=== PATIENT | male | born 1990 | race Caucasian/White ===

== ENCOUNTER 2019-09-11 16:16 | Inpatient (IN) | payer OTHER ==
[~2019-09-11] VITALS: Ht 188 cm; Wt 92.0 kg
[2019-09-11] MEDS ORDERED: FLUO-191 PO (16:45)
[2019-09-11] MEDS ORDERED: CLON2 PO (16:45)
[2019-09-11] MEDS ORDERED: MIRT30 PO (16:45)
[2019-09-11 16:56] LABS: BASOPHILS % (AUTO) 0.2 % (0.0-2.0); EOSINOPHILS % (AUTO) 0.7 % (1.0-6.0); HEMATOCRIT 40.6 % (41-53); LYMPHOCYTES # (AUTO) 1.8 K/uL (1.0-4.8); LYMPHOCYTES % (AUTO) 38.3 % (22.0-44.0); MEAN CORPUSCULAR HEMOGLOBIN 32.4 pg (26.0-34.0); MEAN CORPUSCULAR HGB CONC 34.4 G/dL (31.0-37.0); MEAN CORPUSCULAR VOLUME 94 fL (80-100); MONOCYTES # (AUTO) 0.3 K/uL (0.1-1.0); MONOCYTES % (AUTO) 7.2 % (2.0-9.0); NEUTROPHILS # (AUTO) 2.5 K/uL (1.8-7.7); NEUTROPHILS % (AUTO) 53.6 % (40.0-70.0); PLATELET COUNT (AUTO) 164 K/uL (150-450); RED BLOOD CELL COUNT(AUTO) 4.31 MIL/uL (4.50-5.90); RED CELL DISTRIBUTION WIDTH 13.1 % (11.5-14.5)
[2019-09-11 17:03] LABS: ANION GAP 5 mmol/L (8-16); CALCIUM, TOTAL 8.7 mg/dL (8.8-10.5); CARBON DIOXIDE 32 mmol/L (22-29); CHLORIDE 104 mmol/L (98-107); CREATININE 0.99 mg/dL (0.60-1.30); GLOMERULAR FILTR. RATE CALC > 60 mL/min (>60); GLUCOSE,RANDOM 103 mg/dL (70-110); POTASSIUM 4.6 mmol/L (3.5-5.1); SODIUM SERUM 141 mmol/L (136-145); UREA NITROGEN, BLOOD 18 mg/dL (7-18)
[2019-09-11 17:09] LABS: ALANINE AMINOTRANSFERASE 27 U/L (12-78); ALBUMIN 4.3 g/dL (3.4-5.0); ALKALINE PHOSPHATASE 63 U/L (46-116); ASPARTATE AMINOTRANSFERASE 12 U/L (15-37); BILIRUBIN,TOTAL 0.9 mg/dL (0.1-1.0); TOTAL PROTEIN, SERUM 7.8 g/dL (6.4-8.2)
[2019-09-11] MEDS ORDERED: ACETAMINOPHEN 325 MG TABLET PO PRN (18:45)
[2019-09-11] MEDS ORDERED: ONDANSETRON HCL 4 MG/2 ML VIAL IVP PRN (18:45)
[2019-09-11] MEDS ORDERED: 0.9% SODIUM CHLORIDE 10 ML SYRINGE IVP PRN (18:45)
[2019-09-11 21:01] VITALS: BP 134/65
[2019-09-12 04:39] VITALS: BP 122/63
[2019-09-12 07:39] VITALS: BP 105/54
[2019-09-12 10:51] LABS: AMPHET/METH SCREEN,URINE NEGATIVE (NEGATIVE); BARBITURATE SCREEN, URINE NEGATIVE (NEGATIVE); BENZODIAZEPINES SCREEN,URINE NEGATIVE (NEGATIVE); CANNABINOID SCREEN,URINE NEGATIVE (NEGATIVE); COCAINE SCREEN,URINE NEGATIVE (NEGATIVE); METHADONE SCREEN, URINE NEGATIVE (NEGATIVE); OPIATE SCREEN,URINE NEGATIVE (NEGATIVE)
[2019-09-12 10:53] LABS: PHENCYCLIDINE SCREEN,URINE NEGATIVE (NEGATIVE)
[2019-09-12] MEDS: FLUoxetine HCL 20 MG CAPSULE PO SCH (13:38)
[2019-09-12] MEDS: HydrOXYzine PAMOATE 50 MG CAPSULE PO SCH ×3 (13:38→21:00)
[2019-09-12 15:30] VITALS: BP 111/65
[2019-09-12 19:57] VITALS: BP 127/74
[2019-09-12] MEDS: MIRTAZAPINE 30 MG TABLET PO SCH (20:05)
[2019-09-13 05:45] VITALS: BP 117/66
[2019-09-13 08:33] VITALS: BP 121/65
[2019-09-13] MEDS: HydrOXYzine PAMOATE 50 MG CAPSULE PO SCH ×4 (09:00→20:07)
[2019-09-13] MEDS: FLUoxetine HCL 20 MG CAPSULE PO SCH (09:00)
[2019-09-13 16:17] VITALS: BP 118/62
[2019-09-13 20:06] VITALS: BP 120/72
[2019-09-13] MEDS: MIRTAZAPINE 30 MG TABLET PO SCH (20:07)
[2019-09-14 04:56] VITALS: BP 113/58
[2019-09-14 08:12] VITALS: BP_SYST 109; BP_SYST 127; BP_DIAS 58; BP_DIAS 81
[2019-09-14] MEDS: NICOTINE 7 MG/24 HOUR PATCH TD SCH (08:34)
[2019-09-14] MEDS: FLUoxetine HCL 20 MG CAPSULE PO SCH (08:34)
[2019-09-14] MEDS: HydrOXYzine PAMOATE 50 MG CAPSULE PO SCH ×4 (08:34→20:47)
[2019-09-14 16:25] VITALS: BP 125/70
[2019-09-14 20:09] VITALS: BP 118/68
[2019-09-14] MEDS: MIRTAZAPINE 30 MG TABLET PO SCH (20:47)
[2019-09-15 03:25] VITALS: BP 114/57
[2019-09-15 07:35] VITALS: BP 106/53
[2019-09-15] MEDS: HydrOXYzine PAMOATE 50 MG CAPSULE PO SCH ×5 (08:12→20:48)
[2019-09-15] MEDS: FLUoxetine HCL 20 MG CAPSULE PO SCH ×2 (08:13→08:17)
[2019-09-15] MEDS: NICOTINE 7 MG/24 HOUR PATCH TD SCH (08:17)
[2019-09-15 16:33] VITALS: BP 138/69
[2019-09-15 20:14] VITALS: BP 133/58
[2019-09-15] MEDS: MIRTAZAPINE 30 MG TABLET PO SCH (20:48)
[2019-09-16 04:10] VITALS: BP 94/56
[2019-09-16] MEDS: HydrOXYzine PAMOATE 50 MG CAPSULE PO SCH ×4 (08:09→20:58)
[2019-09-16] MEDS: NICOTINE 7 MG/24 HOUR PATCH TD SCH (08:09)
[2019-09-16 08:19] VITALS: BP 110/52
[2019-09-16 15:54] VITALS: BP 126/75
[2019-09-16 20:20] VITALS: BP 126/71
[2019-09-16] MEDS: MIRTAZAPINE 30 MG TABLET PO SCH (20:58)
[2019-09-17 04:26] VITALS: BP 98/61
[2019-09-17] MEDS: NICOTINE 7 MG/24 HOUR PATCH TD SCH (07:35)
[2019-09-17] MEDS: HydrOXYzine PAMOATE 50 MG CAPSULE PO SCH ×3 (07:35→15:08)
[2019-09-17 08:38] VITALS: BP 112/55
== END 2019-09-17 17:20 | DRG 885 ==
LOC: EMS 16:19 → 6S 18:49
PROVIDERS: ADMIT Hospitalist; ATTEND Hospitalist
DX: F33.2 Major depressive disorder, recurrent severe without psychotic features (principal); R45.851 Suicidal ideations; F11.90 Opioid use, unspecified, uncomplicated; F19.10 Other psychoactive substance abuse, uncomplicated; F60.3 Borderline personality disorder; Z76.5 Malingerer [conscious simulation]; Z91.14 Patient's other noncompliance with medication regimen; Z79.899 Other long term (current) drug therapy; Z82.49 Family history of ischemic heart disease and other diseases of the circulatory system; Z91.19 Patient's noncompliance with other medical treatment and regimen
CPT/HCPCS: G0480